=== PATIENT | female | born 1945 | race Caucasian/White ===

== ENCOUNTER → 2017-07-27 | Outpatient (CLI) | payer MEDICARE ==
[~2017-07-27] MED LIST: AGGRENOX PO; ASPI-715 PO; CELE-1 PO; ESOM40CA42 PO; HCTZ25 PO; IBU800 PO; LEVO-3 PO; LEVO150T72 PO; METO-259 PO; ROS10 PO; SIMV-42 PO
--- NOTE | 2017-07-27 16:00 | RADIOLOGY IMAGING REPORT ---
FACILITY: [facility] - [place] PATIENT NAME: Ernestina Hernandez : 1945 MR: [id number] V: [id number] EXAM DATE: ORDERING PHYSICIAN: ANGEL LUIS BECKMAN TECHNOLOGIST: Location: [facility] Patient: Ernestina Hernandez : 1945 Visit/Account:[id number] Date of Sevice: 07/27/2017 Exam type: HIP RIGHT History: Right hip pain Comparison: None. Findings: Two views the right hip reveal mild to moderate degenerative changes with narrowing of the superior a spect of the hip joint and subchondral cystic changes seen along the lateral aspect of the right acet abulum. There is also mild marginal spurring. No evidence of acute fracture or dislocation involvin g the right hip. Incidentally noted are mild degenerative changes of the left hip joint IMPRESSION: 1. Mild to moderate degenerative changes of the right hip joint as described above Report Dictated By: Maren Dickinson MD at 07/27/2017 3:52 PM Report E-Signed By: Maren Dickinson MD at 07/27/2017 3:54 PM WSN:[id number]
== END ==
LOC: RAD 12:20
PROVIDERS: ATTEND Nurse Practitioner Family
DX: M25.551 Pain in right hip (principal)

== ENCOUNTER → 2017-12-11 | Outpatient (CLI) | payer MEDICARE ==
--- NOTE | 2017-12-11 10:17 | RADIOLOGY IMAGING REPORT ---
FACILITY: [facility] [place]IENT NAME: OSMAN SEYMOUR : [id number] MR: [id number] V: [id number] EXAM DATE: [id number] ORDERING PHYSICIAN: ANGEL LUIS BECKMAN TECHNOLOGIST: Sosa Gary PROCEDURE:BILATERAL DIGITAL SCREENING MAMMOGRAM WITH CAD ASSISTED INTERPRETATION & 3D TOMOSYNTHESIS COMPARISON:Prior mammograms 01/29/2016 through 12/22/2011. INDICATIONS:SCREENING FINDINGS: There is scattered fibroglandular breast tissue in both breasts. Benign appearing secretory calcifications are seen in both breasts. There are no mass lesions, architectural distortion or suspicious microcalcifications identified. DIAGNOSTIC CATEGORY 1--NEGATIVE. RECOMMENDATIONS: ROUTINE MAMMOGRAM AND CLINICAL EVALUATION IN 1 YR. IMPRESSION: BIRADS 1: Negative. Dictated by: Volodymyr Tenorio M.D. on 12/11/2017 at 9:20 Transcribed by: DARIN on 12/11/2017 at 10:04 Approved by: Volodymyr Chaudhary M.D. on 12/11/2017 at 10:16 [facility]
== END ==
LOC: MAMO 02:58
PROVIDERS: ATTEND Nurse Practitioner Family
DX: Z12.31 Encounter for screening mammogram for malignant neoplasm of breast (principal)
CPT/HCPCS: 77063; 77067

== ENCOUNTER → 2017-12-22 | Outpatient (CLI) | payer MEDICARE ==
[2017-12-22 09:00] LABS: PLATELET COUNT, AUTOMATED 199 K/uL (150-450)
== END ==
LOC: LAB 08:41
PROVIDERS: ATTEND Orthopaedic Surgery Hand Surgery
DX: Z01.812 Encounter for preprocedural laboratory examination (principal); M79.671 Pain in right foot; M19.071 Primary osteoarthritis, right ankle and foot
CPT/HCPCS: 36415; 82040; 82247; 82310; 82374; 82435; 82565; 82947; 84075; 84132; 84155; 84295; 84443; 84450; 84460; 84520; 85025; 93005

== ENCOUNTER 2018-03-05 01:35 | Day surgery (SDC) | payer MEDICARE ==
[~2018-03-05] VITALS: Ht 157.5 cm; Wt 73.5 kg
[~2018-03-05 01:35] MED LIST changes: +GABA-549 PO
[2018-03-05 11:20] VITALS: BP 107/69
[2018-03-05] MEDS ORDERED: MIDAZOLAM 2 MG/2 ML VIAL IVP PRN (12:40)
[2018-03-05] MEDS ORDERED: LIDOCAINE/SOD BICARB 8.4% SYR ID ONE (12:40)
[2018-03-05] MEDS ORDERED: FAMOTIDINE 20 MG TAB PO ONE (12:40)
[2018-03-05] MEDS ORDERED: CELECOXIB 200 MG CAP PO ONE (12:40)
[2018-03-05] MEDS ORDERED: NORMOSOL R SOLN(*) 1000 ML BAG 1,000 ML IV PRN (12:40)
[2018-03-05] MEDS ORDERED: ceFAZolin(*) 1 GM VIAL 1 GM in NS(*) 0.9% 100 ML ADDVANT BAG 100 ML IVPB ONE (12:40)
[2018-03-05] MEDS ORDERED: DEXAMETHASONE SOD 4 MG/ML VIAL ONE (12:45)
[2018-03-05] MEDS ORDERED: PROPOFOL EMUL(*) 10MG/ML 20 ML 20 ML ONE (12:45)
[2018-03-05] MEDS ORDERED: ONDANSETRON 4 MG/2 ML VIAL ONE (12:45)
[2018-03-05] MEDS ORDERED: LIDOCAINE MPF 1% 5 ML VIAL ONE (12:45)
[2018-03-05] MEDS ORDERED: METOCLOPRAMIDE 10 MG/2 ML SDV ONE (12:49)
[2018-03-05] MEDS ORDERED: fentaNYL CITR 100 MCG/2 ML AMP ONE ×3 (12:50→18:04)
[2018-03-05] MEDS ORDERED: NEOMYCIN/POLYMYX/BACITR 30 GM TP ONE (17:00)
[2018-03-05] MEDS ORDERED: ROPIVACAINE 0.2% 20 ML VIAL ONE (17:02)
[2018-03-05] MEDS ORDERED: HYDR-385 PO (18:16)
[2018-03-05] MEDS ORDERED: CEPH500T7 PO (18:17)
[2018-03-05 18:45] VITALS: BP 123/69
[2018-03-05 18:57] VITALS: BP 131/79
--- NOTE | 2018-03-05 19:47 | OPERATIVE REPORT 1 ---
EVENT DATE: March 05, 2018 SURGEON: Leo Rapp MD ANESTHESIOLOGIST: Graeme Shaw MD ANESTHESIA: General. 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 PROCEDURES PERFORMED 1. Excision of large osteophytes with metatarsophalangeal joint fusion (25605). 2. Excision of tibial sesamoid at 1st MTP joint (51719). ESTIMATED BLOOD LOSS Minimal. INTRAVENOUS FLUIDS Crystalloid 1800 mL. No colloid. TOURNIQUET TIME 75 SPECIMENS No specimens. COMPLICATIONS No complications. IMPLANTS USED Mydeo six-hole dorsal plate with interfragmentary screw. SUMMARY OF PROCEDURE The patient was brought into the operating room and placed on the OR table in the supine position. After attaining adequate general anesthesia, the right lower extremity was prepped and draped in the usual sterile fashion. The limb was exsanguinated, and the tourniquet was inflated to 250 mmHg. A dorsal incision was made, taken down medial to the EHL, and upon identifying the EHL, we immediately noted the extreme deformity of the toe due to the osteophytes which in some cases were greater than a centimeter in height. We made an incision along the the margin of the EHL and retracted it and then incised the capsule. All the osteophytes were removed, and we got down to a normal sized and shaped joint. Once we had cleared all the osteophytes, we then prepared the joint surfaces for fusion. I left them in a concave and convex position and then moved them checking with a K-wire until we could confirm with fluoroscopy that we had the angle we wanted both in terms of its correction of the hallux valgus deformity as well as the hyperextension deformity (targeting 20 degrees of DF and just slight lateral shift). Once this was in place, we placed a second K-wire and then proceeded to bend the plate to fit to the dorsal surface of the toe. We then placed a dorsal plate and locked three distal screws, followed by compression screw, and then locking three proximal screws. I then placed an interfragmentary screw as well, having placed some bone graft. The surfaces of the fusion site were prepared previously with K-wire drilling and bone grafting. We also removed the tibial sesamoid since it was very arthritic and would most likely continue to cause pain under the great toe. The wound was irrigated. We repaired the capsule with Vicryl, taking care not to compromise the mobility of the extensor tendon. I tested the toe's flexion before finishing the closure. The tourniquet was deflated at 75 minutes. Bipolar cautery was used for hemostasis, followed by closure with nylon. She was given a dry, sterile dressing and a postoperative shoe and was transferred to the Post-Anesthesia Care Unit in stable condition. TOM
== END 2018-03-05 18:45 | disposition home or self-care (01) ==
LOC: OR 01:35
PROVIDERS: ATTEND Orthopaedic Surgery Hand Surgery
DX: M19.071 Primary osteoarthritis, right ankle and foot (principal); M25.871 Other specified joint disorders, right ankle and foot
CPT/HCPCS: 28750; 76000; A4565; A9270; C1713; J1100; J2001; J2405; J2704; J2765; J2795; J3010

== ENCOUNTER → 2018-06-28 | Outpatient (CLI) | payer MEDICARE ==
[~2018-06-28] MED LIST changes: +CEPH500T7 PO; +HYDR-385 PO; -ROS10 PO; +ROSU10TA PO
--- NOTE | 2018-06-28 13:18 | RADIOLOGY IMAGING REPORT ---
FACILITY: [facility] - [place] PATIENT NAME: Ernestina Hernandez : 1945 MR: [id number] V: [id number] EXAM DATE: ORDERING PHYSICIAN: MERT GAMING TECHNOLOGIST: Location: [facility] Patient: Ernestina Hernandez : 1945 Visit/Account:[id number] Date of Sevice: 06/28/2018 CT FOOT W/O RT COMPARISON: None. HISTORY: Right foot pain, nonunion, right foot surgery about 4 months ago. TECHNIQUE: Noncontrast axial CT of the right ankle, midfoot and forefoot with coronal and sagittal r eformats. One of the following dose optimization techniques was utilized in the performance of this exam: auto mated exposure control; adjustment of the mA and/or kV according to patient size; or use of iterative reconstruction technique. Specific details can be referenced in the facility's radiology CT exam op erational policy. CONTRAST: None. FINDINGS: BONES : Previous first MTP joint fusion changes with a dorsal plate and multiple screws affixing the first MTP joint, with a moderate amount of bony bridging across the joint and mild proliferative lamar nges medially and laterally at the first MTP joint, and along the plantar margin of the first metatar leandro head. No evidence of hardware loosening. As a result of fusion there is straightening of the firs t ray. Mild dorsal spurring, talonavicular joint. Mild cystic changes in the distal navicular conside red degenerative. No other significant arthropathy. Small plantar calcaneal enthesophyte at the origi n of the plantar aponeurosis. FLUID: No appreciable effusion or drainable fluid collection. SOFT TISSUES: Unremarkable. No focal muscle atrophy or appreciable muscle edema. OTHER: Negative. IMPRESSION: 1. Sequela of previous first MCP joint arthrodesis with metallic internal fixation with moderate bon y bridging across the first MTP joint and no evidence of hardware loosening. 2. Mild degenerative changes in the right midfoot. Report Dictated By: Liborio Owens at 06/28/2018 12:46 PM Report E-Signed By: Liborio Owens at 06/28/2018 1:15 PM WSN:[id number]
== END ==
LOC: CT 01:55
PROVIDERS: ATTEND Orthopaedic Surgery Hand Surgery
DX: M19.071 Primary osteoarthritis, right ankle and foot (principal); Z98.1 Arthrodesis status

== ENCOUNTER → 2018-09-24 | Outpatient (CLI) | payer MEDICARE ==
--- NOTE | 2018-09-24 14:22 | RADIOLOGY IMAGING REPORT ---
FACILITY: [facility] - [place] PATIENT NAME: Ernestina Hernandez : 1945 MR: [id number] V: [id number] EXAM DATE: ORDERING PHYSICIAN: ANGEL LUIS BECKMAN TECHNOLOGIST: Location: [facility] - [place] Patient: Ernestina Hernandez : 1945 Visit/Account:[id number] Date of Sevice: 09/24/2018 EXAMINATION: CT head without IV contrast HISTORY: Dizziness. COMPARISON: CT head from 02/28/2011. TECHNIQUE: Contiguous axial images were obtained from the skull base to the vertex without intraven ous contrast. Sagittal and coronal reformatted images are also submitted. One of the following dose optimization techniques was utilized in the performance of this exam: Autom ated exposure control; adjustment of the mA and/or kV according to the patient's size; or use of an i terative reconstruction technique. Specific details can be referenced in the facility's radiology C T exam operational policy. FINDINGS: Brain volume: Mild generalized atrophy with associated concordant prominence of the ventricular syst em. Ventricles: Normal. Acute ischemic changes: There is no loss of aguilar-white differentiation to suggest acute ischemia. Hemorrhage: No acute intracranial hemorrhage. Masses/edema: None. Aguilar-white: Chronic infarcts in the bilateral basal ganglia, left greater than right, more defined co mpared to previous exam. White matter: Normal. Vessels: Calcified plaque of both carotid siphons. Extra-axial: Negative. Calvarium/scalp: Negative. Skull base/visualized face: Negative. Visualized sinuses/orbits: Minimal nasal septal deviation to the right. Previous lens surgery bilate rally. IMPRESSION: 1. No intracranial mass lesion or hemorrhage. No CT evidence of acute infarct. 2. Chronic infarcts in the bilateral basal ganglia. Report Dictated By: Shasta Walsh MD at 09/24/2018 2:11 PM Report E-Signed By: Shasta Walsh MD at 09/24/2018 2:16 PM WSN:[email or web address]
== END ==
LOC: CT 13:46
PROVIDERS: ATTEND Nurse Practitioner Family
DX: R42 Dizziness and giddiness (principal)
CPT/HCPCS: 70450